=== PATIENT | female | born 1955 | race Caucasian/White ===

== ENCOUNTER 2016-10-23 15:06 | Emergency (ER) | payer OTHER ==
--- NOTE | ~2016-10-23 | US85 ---
[facility] A Service of [facility] RADIOLOGY TEXT RESULTS PATIENT: ROMA MCCONNELL LOCATION: [place] : 59 UNIT #: [id number] AGE: [address]: Aniket Kirk DO SEX: F ORDER DR: [id number] [facility] [address] [place], [place] [address] [id number] E MR#: [id number] Acc #: [id number] NAME: ROMA MCCONNELL : 1955 SEX: F STUDY DATE/TIME: 10/23/2016 16:16 UNIT: [place] ROOM: STUDY DESCRIPTION: [facility] [employer] [facility] Attending Physician: Aniket Kirk D.O. Ordering Physician: Aniket Kirk D.O. Primary Care Physician: Joshua Mcconnell M.D. MEDICAL IMAGING REPORT This report is preliminary unless electronic signature is present EXAM Right lower extremity venous ultrasound HISTORY Pain skin cancer removed x1 week. Large bleeding hematoma on medial half where skin cancer removed. FINDINGS Real-time ultrasonography of the right lower extremity venous structures performed. Rucker-scale color Doppler Doppler pulse-wave interrogation utilized. The right common femoral vein, femoral vein, profunda femoris vein, popliteal vein, anterior tibial, posterior tibial and peroneal veins are patent with normal compressibility where anatomically possible normal qjqx-sa-mzyx flow on color Doppler interrogation. No DVT seen. The great saphenous vein is patent without evidence of superficial venous thrombosis. No subcutaneous fluid collection is seen on the images presented. Note made of small right groin lymph nodes demonstrating distinct fatty alison. IMPRESSION 1. No right lower extremity deep or superficial venous thrombosis seen at time of this examination. 2. Small right groin lymph nodes. Distinct fatty alison seen. Favored to be benign/reactive in nature. Dictated by... Dillon Dorsey M.D. THIS IS AN ELECTRONICALLY VERIFIED REPORT [facility] A Service of [facility] RADIOLOGY TEXT RESULTS PATIENT: ROMA MCCONNELL LOCATION: [place] : 59 UNIT #: [id number] AGE: [address]: Aniket Kirk DO SEX: F ORDER DR: Dillon Dorsey M.D. at 10/25/2016 11:31 AM PAO/dae TD: 10/24/2016 00:43 JOB #: [id number] MEDICAL IMAGING REPORT Page 1 of 1 COPY
--- NOTE | ~2016-10-23 | CR253 ---
[facility] A Service of [facility] RADIOLOGY TEXT RESULTS PATIENT: ROMA MCCONNELL LOCATION: [facility] : [birth year] UNIT #: [id number] AGE: [address]: Aniket Kirk DO SEX: F ORDER DR: [id number] [facility] [address] [place], [place] [address] [id number] E MR#: [id number] Acc #: [id number] NAME: ROMA MCCONNELL : 1955 SEX: F STUDY DATE/TIME: 10/23/2016 17:59 UNIT: [facility] ROOM: STUDY DESCRIPTION: CR Tibia and Fibula 2 Views Rt Attending Physician: Aniket Kirk D.O. Ordering Physician: Aniket Kirk D.O. Primary Care Physician: Joshua Mcconnell M.D. MEDICAL IMAGING REPORT This report is preliminary unless electronic signature is present EXAM Right tibia-fibula AP and lateral HISTORY Leg pain and redness for 4 days. Recent skin cancer removal. FINDINGS AP and lateral views of the right tibia-fibula demonstrate soft tissue defect in the superficial posterior calf. Bone alignment is normal. Old healed fractured distal fibular metaphysis. Generalized demineralization. Mild degenerative changes in the medial and lateral compartments of the knee. Mild degenerative changes in the patellofemoral compartment as well. IMPRESSION 1. No acute findings. No fracture. 2. Generalized demineralization. 3. Old healed fractured distal fibular metaphysis. 4. Superficial soft tissue defect along the posterior calf. Dictated by... New Page M.D. THIS IS AN ELECTRONICALLY VERIFIED REPORT New Page M.D. at 10/24/2016 10:33 PM DFL/dae TD: 10/24/2016 03:14 JOB #: [id number] MEDICAL IMAGING REPORT Page 1 of 1 COPY
[2016-10-23 16:13] LABS: BASOPHIL# 0.1 X10e3 (0-0.3); BASOPHIL% 0.6 % (0-2.5); EOSINOPHIL# 0.2 X10e3 (0-0.7); EOSINOPHIL% 1.2 % (0.0-7.0); HEMATOCRIT 44.2 % (35.0-45.0); HEMOGLOBIN 14.5 gm/dL (12.0-16.0); LYMPHOCYTE# 1.2 X10e3 (1.0-3.5); LYMPHOCYTE% 9.4 % (17.0-45.0); MEAN CELL VOLUME 96.6 FL (83-96); MEAN CORPUSCULAR HEMOGLOBIN 31.8 PG (28-34); MEAN CORPUSCULAR HGB CONC 32.9 g/dL (30-36); MEAN PLATELET VOLUME 8.5 FL (6.5-11.5); MONOCYTE# 1.5 X10e3 (0-1.0); MONOCYTE% 11.7 % (3.0-12.0); NEUTROPHIL# 10.2 X10e3 (1.5-7.1); NEUTROPHIL% 77.1 % (40-75); PLATELET COUNT 305 X10e3 (140-420); RED BLOOD COUNT 4.58 X10e (3.90-5.30); RED CELL DISTRIBUTION WIDTH 13.4 % (11.0-15.5); WHITE BLOOD COUNT 13.2 X10e3 (4.0-10.5)
[2016-10-23 16:14] LABS: DIFF IND NO
[2016-10-23 16:28] LABS: INR 0.9; PROTHROMBIN TIME (PATIENT) 9.7 SECONDS (9.6-11.5)
[2016-10-23 16:40] LABS: ALBUMIN SERUM 3.2 g/dL (3.5-5.0); BILIRUBIN, DIRECT 0.1 mg/dL (0.0-0.2); BILIRUBIN,INDIRECT 0.4 mg/dL (0.0-0.9); BILIRUBIN,TOTAL 0.5 mg/dL (0.2-2.0); CALCIUM SERUM 9.1 mg/dL (8.4-10.2); CREATININE SERUM 0.5 mg/dL (0.6-1.4); POTASSIUM 3.4 mmol/L (3.5-5.1); PROTEIN TOTAL SERUM 7.1 g/dL (6.0-8.3)
== END 2016-10-23 20:38 | disposition home or self-care (01) ==
LOC: CED 15:06
PROVIDERS: Emergency Medicine
DX: T81.4XXA Infection following a procedure, initial encounter (principal); L08.9 Local infection of the skin and subcutaneous tissue, unspecified; E78.5 Hyperlipidemia, unspecified; E03.9 Hypothyroidism, unspecified; F17.200 Nicotine dependence, unspecified, uncomplicated; Z98.890 Other specified postprocedural states
CPT/HCPCS: 36415; 73590; 80048; 80076; 85025; 85610; 85730; 93971; 96374; 96375; 99284; J0696; J1170; J2405